=== PATIENT | female | born 1965 | race Caucasian/White ===

== ENCOUNTER 2019-12-01 16:25 | Emergency (ER) | payer BC ==
[2019-12-01 17:34] LABS: ABSOLUTE BASOPHILS # (AUTO) 0.1 10^3/uL (0.0-0.2); ABSOLUTE EOSINOPHILS # (AUTO) 0.1 10^3/uL (0.0-0.6); ABSOLUTE LYMPHOCYTES (AUTO) 2.1 10^3/uL (0.5-4.7); ABSOLUTE NEUT (AUTO) 2.6 10^3/uL (1.7-8.2); EOSINOPHILS % (AUTO) 2.1 % (0-6); HEMATOCRIT 39.6 % (36.0-47.0); HEMOGLOBIN 13.9 g/dL (12.0-15.5); LYMPHOCYTES % (AUTO) 36.4 % (13-45); MEAN CORPUSCULAR HEMOGLOBIN 30.4 pg (27.0-33.4); MEAN CORPUSCULAR VOLUME 87 fl (80-97); PLATELET COUNT 274 10^3/uL (150-450); RED BLOOD COUNT 4.57 10^6/uL (3.72-5.28); RED CELL DISTRIBUTION WIDTH 14.1 % (11.5-14.0); SEGMENTED NEUTROPHILS % (AUTO) 43.5 % (42-78); TOTAL CELLS COUNTED % (AUTO) 100 %; WHITE BLOOD COUNT 5.9 10^3/uL (4.0-10.5)
[2019-12-01] MEDS ORDERED: NORMAL SALINE 1000 ML 1,000 ML IV ONE (17:48)
[2019-12-01] MEDS ORDERED: MORPHINE SULFATE 10 MG/ML INJ IV ONE (17:48)
[2019-12-01] MEDS ORDERED: ONDANSETRON HCL INJ/PF 4 MG/2 ML SDV IV ONE (17:48)
--- NOTE | 2019-12-01 17:50 | ER Document Report ---
ED GI/ - General Chief Complaint: Abdominal Pain Stated Complaint: ABDOMINAL PAIN/DIARRHEA/FEVER Time Seen by Provider: 12/01/19 17:07 Primary Care Provider: BRANDON ROLDAN PA-C [PHYSICIAN WOOD TILE INSTALLATION HELPER] - Follow up in 3-5 days Notes: Patient is 54-year-old female who presents to the emergency department with 5 days of diarrhea. Patient states that she also has a mild cough. At the patient's work, coworker tested positive for COVID-19. Patient called her primary care provider yesterday and referred her to [facility] to have COVID-19 testing. Patient then was referred to the emergency department for her abdominal pain and diarrhea. - Related Data Allergies/Adverse Reactions: codeine Allergy (Verified 12/01/19 17:23) Penicillins Allergy (Verified 12/01/19 17:23) vancomycin Allergy (Verified 12/01/19 17:23) Past Medical History - General Information source: Patient - Social History Smoking Status: Never Smoker Frequency of alcohol use: None Drug Abuse: None Family History: Reviewed & Not Pertinent Patient has homicidal ideation: No GI Medical History: Reports: Hx Gastroesophageal Reflux Disease Past Surgical History: Reports: Hx Appendectomy, Hx Section, Hx Cholecystectomy, Hx Hysterectomy, Hx Orthopedic Surgery, Hx Thyroid Surgery, Hx Tonsillectomy Review of Systems - Review of Systems Notes: REVIEW OF SYSTEMS: CONSTITUTIONAL : See HPI. EENT: Denies eye, ear, throat, or mouth pain, discharge, or symptoms. Denies nasal or sinus congestion. CARDIOVASCULAR: Denies chest pain. RESPIRATORY: See HPI. GASTROINTESTINAL: See HPI. GENITOURINARY: Denies difficulty urinating, burning, blood in urine, urgency or frequency. MUSCULOSKELETAL: Denies neck and back pain. Denies joint pain or swelling. SKIN: Denies rash, itchiness, or lesions HEMATOLOGIC : Denies easy bruising or bleeding. LYMPHATIC: Denies swollen, painful, enlarged glands. NEUROLOGICAL: Denies no numbness or tingling denies weakness. Denies headache. Denies altered mental status. Denies alteration in speech. PSYCHIATRIC: Denies stress, anxiety, alteration in sleep patterns, or depression. All other systems reviewed and negative. Physical Exam - Vital signs Vitals: Temp Pulse Resp BP Pulse Ox 98.3 F 88 18 112/92 H 99 12/01/19 16:27 12/01/19 16:27 12/01/19 16:27 12/01/19 16:27 12/01/19 16:27 - Notes Notes: PHYSICAL EXAMINATION: GENERAL: Appears well, healthy, well-nourished, no acute distress. HEAD: Normocephalic, atraumatic. EYES: PERRL, conjunctiva normal, all extraocular movements intact, sclera nonicteric ENT: Dry mucous membranes. NECK: Supple, no noticeable swelling, redness, rash. Normal range of motion. LUNGS: Equal breath sounds bilaterally and clear to auscultation. No wheezes rales or rhonchi. CARDIOVASCULAR: S1-S2, regular rate, regular rhythm. Radial pulses 2+, normal. ABDOMEN: Normoactive bowel sounds. Soft, tender generalized abdomen. Mild guarding, no rebound tenderness, and no masses palpated. EXTREMITIES: Normal strength and range of motion, no pitting or edema. No cyanosis. NEUROLOGICAL: Moves all extremities upon command. Strength 5/5 in all e xtremities. PSYCH: Normal mood, normal affect. SKIN: Warm, dry. No rash, lesions, ulcerations noted. Normal skin turgor. Course - Re-evaluation Re-evalutation: 12/01/19 19:45 Hematology is unremarkable. Chemistries are also unremarkable, surprisingly as the patient reports 5 days of diarrhea. Lipase is normal and LFTs are normal. Patient has a few white blood cells noted in her stool. C. difficile is a send out test. CT of the abdomen pelvis unremarkable. 12/01/19 20:47 Urinalysis is unremarkable. Patient will be sent home with [facility] to help with her diarrhea. Gave verbal instructions on brat diet. She will follow-up with her primary care provider. Advised her to wait for her results of her COVID test done in [place]. She is in agreement with this plan. Follow-up precautions were given. Verbal discharge instructions were given to the patient. They verbalized understanding. They are stable for discharge. - Vital Signs Vital signs: Temp Pulse Resp BP Pulse Ox 98.7 F 72 18 102/55 L 98 12/01/19 21:07 12/01/19 21:07 12/01/19 19:44 12/01/19 21:07 12/01/19 19:44 - Laboratory Result Diagrams: 12/01/19 16:55 12/01/19 16:55 Laboratory results interpreted by me: 12/01/19 12/01/19 16:55 16:55 RDW 14.1 H [place] % (Auto) 17.0 H Stool for White Cells FEW H Discharge - Discharge Clinical Impression: Cough Diarrhea Qualifiers: Diarrhea type: unspecified type Qualified Code(s): R19.7 - Diarrhea, unspec ified Condition: Stable Disposition: HOME, SELF-CARE Additional Instructions: You were seen today in the emergency department for abdominal pain and diarrhea. Your exam and your CT scans are reassuring. Please make sure you stay well- hydrated. You are being started on Pepcid and Carafate to see if this will help with your symptoms. You can also take Lomotil as needed. Follow-up with your primary care provider in regards to this visit. Wait for the health department to call you with your COVID-19 results. Bring back a stool sample for ova and parasite testing. You can bring this straight to the lab with the lab slip. Prescriptions: Diphenoxylate HCl/Atrop Sulf [Lomotil 2.5 mg Tablet] 1 tab PO Q6HP PRN #30 tablet PRN Reason: Sucralfate [Carafate 1 gm Tablet] 1 gm PO ACHS #30 tablet Famotidine [Pepcid 20 mg Tablet] 20 mg PO BID #60 tablet Forms: Follow-Up Laboratory Testing Referrals: BRANDON ROLDAN PA-C [PHYSICIAN WOOD TILE INSTALLATION HELPER] - Follow up in 3-5 days
[2019-12-01 17:51] LABS: ALBUMIN 4.2 g/dL (3.5-5.0); ALKALINE PHOSPHATASE 70 U/L (38-126); ANION GAP 10 (5-19); ASPARTATE AMINO TRANSFERASE 21 U/L (14-36); BILIRUBIN,TOTAL 0.4 mg/dL (0.2-1.3); BLOOD UREA NITROGEN 12 mg/dL (7-20); CALCIUM 9.4 mg/dL (8.4-10.2); CARBON DIOXIDE 24 mmol/L (22-30); CHLORIDE 104 mmol/L (98-107); GLUCOSE 106 mg/dL (75-110); TOTAL PROTEIN 7.2 g/dL (6.3-8.2)
--- NOTE | 2019-12-01 18:54 | RADIOLOGY REPORT (SQ) ---
EXAM DESCRIPTION: CT ABD/PELVIS WITH IV ONLY IMAGES COMPLETED DATE/TIME: 12/01/2019 6:30 pm REASON FOR STUDY: abdominal pain COMPARISON: None. TECHNIQUE: CT scan of the abdomen and pelvis performed using helical scanning technique with dynamic intravenous contrast injection. No oral contrast. Images reviewed with lung, soft tissue, and bone windows. Reconstructed coronal and sagittal MPR images reviewed. Delayed images for evaluation of the urinary system also acquired. All images stored on PACS. All CT scanners at this facility use dose modulation, iterative reconstruction, and/or weight based d osing when appropriate to reduce radiation dose to as low as reasonably achievable (ALARA). [facility]: Dose Right [facility]: CareDose [facility]: Dose Right [facility]: Teradose 4D [facility]: Public Mobile CONTRAST TYPE AND DOSE: contrast/concentration: Isovue 350.00 mg/ml; Total Contrast Delivered: 94.0 ml; Total Saline Delivered: 71.0 ml RENAL FUNCTION: BUN 12 creatinine 0.69 RADIATION DOSE: CT Rad equipment meets quality standard of care and radiation dose reduction techniq ues were employed. CTDIvol: 14.3 - 18.7 mGy. DLP: 2938 mGy-cm.. LIMITATIONS: None. FINDINGS: LOWER CHEST: No significant findings. No nodules or infiltrates. LIVER: 2 small contiguous cysts are present in the right lobe of the liver. No solid masses. SPLEEN: Normal size. No focal lesions. PANCREAS: No masses. No significant calcifications. No adjacent inflammation or peripancreatic fluid collections. Pancreatic duct not dilated. GALLBLADDER: Surgically absent. ADRENAL GLANDS: No significant masses or asymmetry. RIGHT KIDNEY AND URETER: No solid masses. No significant calcifications. No hydronephrosis or hyd roureter. LEFT KIDNEY AND URETER: No solid masses. No significant calcifications. No hydronephrosis or hydr oureter. AORTA AND VESSELS: No aneurysm. No dissection. Renal arteries, SMA, celiac without stenosis. RETROPERITONEUM: No retroperitoneal adenopathy, hemorrhage or masses. BOWEL AND PERITONEAL CAVITY: Radiopaque suture is seen near the gastroesophageal junction. No bowel mass is appreciated. No inflammation is seen. APPENDIX: Not identified. PELVIS: No mass. No free fluid. Normal bladder. ABDOMINAL WALL: No masses. No hernias. BONES: No significant or acute findings. OTHER: No other significant finding. IMPRESSION: NO SIGNIFICANT OR ACUTE FINDING IN THE ABDOMEN OR PELVIS ON CT SCAN WITH IV CONTRAST. TECHNICAL DOCUMENTATION: JOB ID: [id number] Quality ID # [id number]: Final reports with documentation of one or more dose reduction techniques (e.g., Au tomated exposure control, adjustment of the mA and/or kV according to patient size, use of iterative reconstruction technique) 2010 [employer]- All Rights Reserved Reading location - IP/workstation name: [email or web address]
--- NOTE | 2019-12-01 18:59 | RADIOLOGY REPORT (SQ) ---
EXAM DESCRIPTION: CHEST SINGLE VIEW IMAGES COMPLETED DATE/TIME: 12/01/2019 6:42 pm REASON FOR STUDY: cough COMPARISON: None. EXAM PARAMETERS: NUMBER OF VIEWS: One view. TECHNIQUE: Single frontal radiographic view of the chest acquired. RADIATION DOSE: NA LIMITATIONS: None. FINDINGS: LUNGS AND PLEURA: No opacities, masses or pneumothorax. No pleural effusion. MEDIASTINUM AND HILAR STRUCTURES: No masses. Contour normal. HEART AND VASCULAR STRUCTURES: Heart normal in size. Normal vasculature. BONES: No acute findings. HARDWARE: None in the chest. OTHER: No other significant finding. IMPRESSION: NO ACUTE RADIOGRAPHIC FINDING IN THE CHEST. TECHNICAL DOCUMENTATION: JOB ID: [id number] 2010 [employer]- All Rights Reserved Reading location - IP/workstation name: [email or web address]
[2019-12-01] MEDS ORDERED: DICYCLOMINE HCL 20 MG TABLET PO ONE (19:05)
[2019-12-01] MEDS ORDERED: DIPHENOXYLATE HCL/ATROP SULF 2.5-0.025 MG TABLET PO ONE (19:05)
[2019-12-01 19:59] VITALS: BP 102/55
[2019-12-01] MEDS ORDERED: FAMOTIDINE 20 MG TABLET PO ONE (20:20)
[2019-12-01] MEDS ORDERED: SUCRALFATE 1 GM TABLET PO ONE (20:20)
[2019-12-01 20:28] LABS: APPEARANCE,URINE CLEAR; BILIRUBIN,URINE NEGATIVE (NEGATIVE); COLOR,URINE YELLOW; GLUCOSE, URINE NEGATIVE (NEGATIVE); KETONES,URINE NEGATIVE (NEGATIVE); LEUKOCYTE ESTERASE,URINE NEGATIVE (NEGATIVE); NITRITE,URINE NEGATIVE (NEGATIVE); PROTEIN,URINE NEGATIVE (NEGATIVE); UROBILINOGEN,URINE NEGATIVE mg/dL (<2.0)
[2019-12-01 20:30] LABS: C DIFFICILE GDH NEGATIVE (NEGATIVE)
[2019-12-01 20:40] LABS: URINE SPECIFIC GRAVITY > 1.060
[2019-12-01] MEDS ORDERED: ONDANSETRON ODT 4 MG TAB (6 TAB/ER DISP) PO PRN (20:52)
== END 2019-12-01 21:07 | disposition home or self-care (01) ==
LOC: ER 16:25
DX: R19.7 Diarrhea, unspecified (principal); R05 Cough; R10.9 Unspecified abdominal pain; R10.817 Generalized abdominal tenderness; Z20.828 Contact with and (suspected) exposure to other viral communicable diseases; Z90.49 Acquired absence of other specified parts of digestive tract; Z87.19 Personal history of other diseases of the digestive system; Z90.710 Acquired absence of both cervix and uterus; Z88.6 Allergy status to analgesic agent; Z88.5 Allergy status to narcotic agent; Z88.0 Allergy status to penicillin; Z88.1 Allergy status to other antibiotic agents
CPT/HCPCS: 99284; 96361; 96374; 96375; 36415; 87045; 89055; 87205; 83690; 85025; 82272; 80053; 81001; 87324; 87449; 71045; 74177; J3490 ×2; J2270; J2405; J7030

== ENCOUNTER 2019-12-14 21:11 | Emergency (ER) | payer BC ==
[2019-12-14 21:22] VITALS: BP 136/88
--- NOTE | 2019-12-14 21:41 | ER Document Report ---
ED Skin Rash/Insect Bite/Abscs - General Chief Complaint: Insect Bite Stated Complaint: POSS SPIDER BITE Time Seen by Provider: 12/14/19 21:35 Primary Care Provider: [facility] [Provider Group] - Follow up as needed [facility] [Provider Group] - Follow up as needed [facility] [Provider Group] - Follow up as needed AIYLN DEL CASTILLO MD [ACTIVE STAFF] - Follow up as needed Mode of Arrival: Ambulatory Information source: Patient Notes: 53-year-old female presents to ED for complaint of insect bite to the right thigh. She states she started having an itchy feeling to the right thigh while at work today and she is scratched it a lot. She states she had someone look at it and they told her to quit scratching and put some alcohol on it. They did not have any alcohol pads at work so they put hand acoustical engineer on it. She states she continued to itch and now it is swollen and painful and warm to the touch. She states she does not know what better and does not know she has an infection now because it is increased in pain. She states she has not taken any Benadryl any Tylenol or any Motrin. She is alert oriented respirations regular and unlabored speaking in full sentences. I did have look at the area. He stated look like to him a local reaction to an insect bite but if she wanted we could give her a prescription for Keflex which she could take the prescription and fill it if she does not improve the next 24 hours. Patient was agreeable to this treatment plan and patient was discharged home. - HPI Patient complains to provider of: Tender/swollen area - Right thigh, Insect bite Onset: This afternoon Onset/Duration: Gradual, Worse Quality of pain: Burning Severity: Mild Pain Level: 1 Skin Character: Erythema, Swelling, Other - Insect bite Skin Temperature: Hot Quality of rash: Itchy, Burning Identify cause: Yes - Type of insect Exacerbated by: Other - Scratching Relieved by: Other Similar symptoms previously: No Recently seen / treated by doctor: No - Related Data Allergies/Adverse Reactions: codeine Allergy (Verified 12/14/19 21:30) Penicillins Allergy (Verified 12/14/19 21:30) vancomycin Allergy (Verified 12/14/19 21:30) Past Medical History - General Information source: Patient - Social History Smoking Status: Never Smoker Frequency of alcohol use: None Drug Abuse: None Family History: Reviewed & Not Pertinent Patient has suicidal ideation: No Patient has homicidal ideation: No - Past Medical History Cardiac Medical History: Reports: None Pulmonary Medical History: Reports: None EENT Medical History: Reports: None Neurological Medical History: Reports: None Endocrine Medical History: Reports: None Renal/ Medical History: Reports: None Malignancy Medical History: Reports: None GI Medical History: Reports: Hx Gastroesophageal Reflux Disease Musculoskeletal Medical History: Reports None, Reports Hx Musculoskeletal Deformity, Reports Hx Musculoskeletal Trauma Skin Medical History: Reports None Psychiatric Medical History: Reports: None Traumatic Medical History: Reports: None Infectious Medical History: Reports: None Past Surgical History: Reports: Hx Appendectomy, Hx Section, Hx Cholecystectomy, Hx Hysterectomy, Hx Orthopedic Surgery, Hx Thyroid Surgery, Hx Tonsillectomy Review of Systems - Review of Systems Constitutional: No symptoms reported EENT: No symptoms reported Cardiovascular: No symptoms reported Respiratory: No symptoms reported Gastrointestinal: No symptoms reported Genitourinary: No symptoms reported Female Genitourinary: No symptoms reported Musculoskeletal: No symptoms reported Skin: Other - Red swollen area to the right lateral thigh upper Hematologic/Lymphatic: No symptoms reported Neurological/Psychological: No symptoms reported -: Yes All other systems reviewed and negative Physical Exam - Vital signs Vitals: Temp Pulse Resp BP Pulse Ox 98.5 F 100 18 136/88 H 99 12/14/19 21:18 12/14/19 21:18 12/14/19 21:18 12/14/19 21:18 12/14/19 21:18 Interpretation: Normal - General General appearance: Appears well, Alert - HEENT Head: Normocephalic, Atraumatic Eyes: Normal Pupils: PERRL - Respiratory Respiratory status: No respiratory distress Chest status: Nontender Breath sounds: Normal Chest palpation: Normal - Cardiovascular Rhythm: Regular Heart sounds: Normal auscultation Murmur: No - Abdominal Inspection: Normal Distension: No distension Bowel sounds: Normal Tenderness: Nontender Organomegaly: No organomegaly - Back Back: Normal, Nontender - Extremities General upper extremity: Normal inspection, Nontender, Normal color, Normal ROM, Normal temperature General lower extremity: Normal color, Normal ROM, Normal temperature, Normal weight bearing. No: Rex's sign Thigh: Tender, Other - Erythematous swollen area to the upper right thigh. It was outlined with marker in the emergency room. - Neurological Neuro grossly intact: Yes Cognition: Normal Orientation: AAOx4 Trevon Coma Scale Eye Opening: Spontaneous Trevon Coma Scale Verbal: Oriented [place] Coma Scale Motor: Obeys Commands [place] Coma Scale Total: 15 Speech: Normal Motor strength normal: LUE, RUE, LLE, RLE Sensory: Normal - Psychological Associated symptoms: Normal affect, Normal mood - Skin Skin Temperature: Warm Skin Moisture: Dry Skin Color: Normal Course - Vital Signs Vital signs: Temp Pulse Resp BP Pulse Ox 98.5 F 100 18 136/88 H 99 12/14/19 21:30 12/14/19 21:18 12/14/19 21:18 12/14/19 21:18 12/14/19 21:18 Discharge - Discharge Clinical Impression: Insect bite Qualifiers: Encounter type: initial encounter Site of insect bite: thigh Laterality: right Qualified Code(s): S70.361A - Insect bite (nonvenomous), right thigh, initial encounter Condition: Stable Disposition: HOME, SELF-CARE Additional Instructions: Insect Bites You have been bitten by an insect. These bites can cause two types of swelling: an initial swelling due to insect saliva or injected poison, and a late reaction due to your body's allergic reaction. This initial local reaction may be uncomfortable but is not dangerous. Often there's an itchy "hive" at the bite location. This is treated with antihistamines, cold compresses, and resting the affected body part. The later reaction often develops about the second day. The entire area becomes very swollen, red, itchy, and tender. This is an allergic reaction. Your body is attacking the leftover insect saliva or venom. This type of allergy is unpleasant, but not dangerous. We treat this swelling with cortisone-type medicine. Sometimes we use antibiotics if we're worried about infection. Antihistamines help with the itch. If you develop a fever, chills, a red streak, or swollen glands in the area of the bite, infection may be starting. Return at once. Diphenhydramine The use of diphenhydramine (Benadryl) has been recommended to control allergic symptoms. The 25 mg strength is available over- the-counter, as well as the elixir. This antihistamine is used for many symptoms. It's useful for itching, watering eyes and nose, allergic swelling, hives, and insect stings. The medication can be repeated four times daily. Age Elixir (12.5 mg/tsp) 25 mg pill 1 yr 1/4 tsp 2-3 yr 1/2 tsp 4-8 yr 1 tsp 9-14 yr 2 tsp one tab adult 1-2 tabs Antihistamines may cause drowsiness, especially with the first dose. Do not operate machinery or drive while under the effects of the medication. Do not combine the medication with alcohol, or with any other medication without talking to your doctor. Ice Packs Apply ice packs frequently against the painful area. Many different schedules are recommended, such as "20 minutes on, 20 minutes off" or "one hour ice, two hours rest." If you need to work, you may need to go longer between ice treatments. You should plan to have the area ice packed AT LEAST one fourth of the time. The ice should be applied over the wrap, tape, or splint, or over a layer of cloth -- not directly against the skin. Some ice bags have a built-in cloth and can be put directly on the skin. I have given you a prescription for Keflex. Is the area to your right thigh improves in the next 24 hours do not take the Keflex if your area of redness increases pain increases or you develop a fever please start the Keflex and take it until it is completed. FOLLOW-UP CARE: If you have been referred to a physician for follow-up care, call the physicians office for an appointment as you were instructed or within the next two days. If you experience worsening or a significant change in your symptoms, notify the physician immediately or return to the Emergency Department at any time for re-evaluation. Prescriptions: Cephalexin Monohydrate [Keflex 500 mg Capsule] 500 mg PO Q6H 5 Days #20 capsule Forms: Elevated Blood Pressure Referrals: [facility] [Provider Group] - Follow up as needed [facility] [Provider Group] - Follow up as needed [facility] [Provider Group] - Follow up as needed AILYN DEL CASTILLO MD [ACTIVE STAFF] - Follow up as needed
== END 2019-12-14 21:42 | disposition home or self-care (01) ==
LOC: ER 21:11
DX: S70.361A Insect bite (nonvenomous), right thigh, initial encounter (principal); W57.XXXA Bitten or stung by nonvenomous insect and other nonvenomous arthropods, initial encounter; Z88.0 Allergy status to penicillin; Z88.8 Allergy status to other drugs, medicaments and biological substances
CPT/HCPCS: 99281

== ENCOUNTER → 2020-05-31 | Outpatient (CLI) | payer BC ==
--- NOTE | 2020-05-31 15:25 | WOMENS IMAGING REPORT ---
EXAM DESCRIPTION: 3D SCREENING MAMMO BILAT IMAGES COMPLETED DATE/TIME: 05/31/2020 2:39 pm REASON FOR STUDY: Z12.31 ENCNTR SCREEN MAMMOGRAM FOR MALIGNANT NEOPLASM OF BREAST Z12.31 ENCNTR SCR EEN MAMMOGRAM FOR MALIGNANT NEOPLASM OF [place] COMPARISON: 2014 EXAM PARAMETERS: Views: Standard craniocaudal and mediolateral oblique views of each breast recorded using digital acquisition and breast tomosynthesis. Read with the assistance of CAD. .[facility] - R2 [employer] Developer Version 9.2 LIMITATIONS: None. FINDINGS: No suspicious masses, suspicious calcifications or architectural distortion. No areas of c oncern. IMPRESSION: NEGATIVE MAMMOGRAM. BIRADS 1. BREAST DENSITY: b. There are scattered areas of fibroglandular density. BIRAD: ASSESSMENT: 1 NEGATIVE RECOMMENDATION: ROUTINE SCREENING COMMENT: The patient has been notified of the results by letter per MQSA requirements. Additional no tification policies are in place for contacting patient with suspicious or incomplete findings. Quality ID #[id number]: The [employer] recommends an annual screening mammogram for women aged 40 years or over. This facility utilizes a reminder system to ensure that all patients receive reminder letters, and/or direct phone calls for appointments. This includes reminders for routine scr eening mammograms, diagnostic mammograms, or other Breast Imaging Interventions when appropriate. Th is patient will be placed in the appropriate reminder system. TECHNICAL DOCUMENTATION: FINDING NUMBER: (1) ASSESSMENT: (1) JOB ID: [id number] 2010 [employer]- All Rights Reserved Reading location - IP/workstation name: [email or web address]
== END ==
LOC: WI 14:18
PROVIDERS: ATTEND Advanced Practice Midwife
DX: Z12.31 Encounter for screening mammogram for malignant neoplasm of breast (principal)
CPT/HCPCS: 77063; 77067